=== PATIENT | female | born 1990 | race Caucasian/White ===

== ENCOUNTER → 2016-06-19 | Outpatient (CLI) | payer OTHER ==
[2016-06-19 18:37] LABS: ALBUMIN/GLOBULIN RATIO 1.21 (1.00-1.93); ALKALINE PHOSPHATASE 75 U/L (45-117); ALT/SGPT 26 U/L (12-78); ANION GAP 8 MEQ/L (8-16); AST/SGOT 14 U/L (15-37); BILIRUBIN,TOTAL 0.2 MG/DL (0.2-1.0); BLOOD UREA NITROGEN 10 MG/DL (7-18); CALCIUM LEVEL 8.6 MG/DL (8.5-10.1); CARBON DIOXIDE LEVEL 29 MEQ/L (21-32); CHLORIDE LEVEL 103 MEQ/L (98-107); CREATININE FOR GFR 0.59 MG/DL (0.55-1.02); FREE T4 1.03 NG/DL (0.76-1.46); GLOMERULAR FILTRATION RATE > 60.0 (>60); GLUCOSE, FASTING 84 MG/DL (70-105); POTASSIUM SERUM 3.9 MEQ/L (3.5-5.1); SODIUM LEVEL 140 MEQ/L (136-145); TOTAL PROTEIN 7.3 GM/DL (6.4-8.2)
[2016-06-19 19:24] LABS: DIFF SLIDE NUMBER 289; MEAN CORPUSCULAR HEMOGLOBIN 30.4 pg (27.0-33.0); MEAN CORPUSCULAR HGB CONC 33.3 g/dl (32.0-36.5); MEAN CORPUSCULAR VOLUME 91.5 fl (80.0-96.0); PLATELET COUNT, AUTOMATED 261 k/mm3 (150-450); RED CELL DISTRIBUTION WIDTH 11.9 % (11.5-14.5); WHITE BLOOD COUNT 8.6 K/mm3 (4.0-10.0)
[2016-06-19 20:41] LABS: BASOPHILS 1 % (0-4); EOSINOPHILS 4 % (0-5)
[2016-06-19 20:42] LABS: POIKILOCYTOSIS 1+
== END ==
LOC: M LAB 16:10
PROVIDERS: ATTEND Family Medicine
DX: Z13.0 Encounter for screening for diseases of the blood and blood-forming organs and certain disorders involving the immune mechanism (principal); Z13.29 Encounter for screening for other suspected endocrine disorder

== ENCOUNTER → 2016-08-02 | Outpatient (CLI) | payer OTHER ==
[2016-08-02 18:11] LABS: CONTROL LINE HCG INT CTR LINE PRESENT
[2016-08-02 18:31] LABS: T UPTAKE 34 % (30-39); THYROXINE (T4) 8.6 UG/DL (4.5-12.0)
== END ==
LOC: M SMT 14:58
PROVIDERS: ATTEND Advanced Practice Midwife
DX: N91.2 Amenorrhea, unspecified (principal)

== ENCOUNTER → 2016-08-06 | Outpatient (CLI) | payer OTHER ==
[2016-08-06 13:47] LABS: FOLLICLE STIMULATING HORMONE 4.6 mIU/mL; LUTEINIZING HORMONE 11.1 mIU/mL
[2016-08-06 13:49] LABS: PROLACTIN 7.8 NG/ML
[2016-08-10 00:08] LABS: INSULIN FREE 3.1 uU/mL (.)
== END ==
LOC: M SMT 09:38
PROVIDERS: ATTEND Advanced Practice Midwife
DX: N91.2 Amenorrhea, unspecified (principal)

== ENCOUNTER → 2016-08-24 | Outpatient (CLI) | payer OTHER ==
[2016-08-26 10:04] LABS: PROGESTERONE 0.7 NG/ML
[2016-08-26 10:15] LABS: ESTRADIOL 51.7 PG/ML
== END ==
LOC: M LRY 17:35
PROVIDERS: ATTEND Advanced Practice Midwife
DX: N91.2 Amenorrhea, unspecified (principal)

== ENCOUNTER → 2016-08-26 | Outpatient (CLI) | payer OTHER ==
--- NOTE | 2016-08-27 05:35 | REP ---
Clinical: Amenorrhea . Technique: Transabdominal pelvic ultrasound followed by transvaginal examination for better evaluation of the endometrium and adnexa with color Doppler evaluation of the ovaries. Findings: Bladder is unremarkable and measures 10.2 x 12.8 x 11.4 cm . Normal anteverted uterus measures 6.6 x 2.3 x 3.6 cm. The endometrial complex measures 6.8 mm thickness. Few Nabothian cysts are identified measuring up to 8 mm. No further discrete uterine or endometrial abnormalities are appreciated. Bilateral ovaries are relatively normal in appearance and vascularity without evidence for torsion. Right ovary measures 3.8 x 2.7 x 2.1 cm ; R I = 0.52 . Left ovary measures 3.3 x 2.1 x 3.0 cm ; R I = 0.53. Multiple bilateral follicles are noted predominantly surrounding the periphery of the ovaries raising the possibility of polycystic ovary syndrome. No pelvic fluid or adnexal mass lesion. Impression: 1. Small peripheral follicles surround the bilateral ovaries raising the possibility of polycystic ovary syndrome. 2. Few Nabothian cysts measuring up to 8 mm. 3. Otherwise normal pelvic ultrasound. Signed by Dano Drew MD 08/27/2016 05:27 A
== END ==
LOC: M SMT 14:57
PROVIDERS: ATTEND Advanced Practice Midwife
DX: N91.2 Amenorrhea, unspecified (principal)

== ENCOUNTER → 2017-02-06 | Outpatient (CLI) | payer OTHER ==
[2017-02-06 20:56] LABS: CONTROL LINE HCG INT CTR LINE PRESENT
== END ==
LOC: M LRY 15:16
PROVIDERS: ATTEND Advanced Practice Midwife
DX: N91.2 Amenorrhea, unspecified (principal)